=== PATIENT | female | born 1990 | race Caucasian/White ===

== ENCOUNTER 2019-01-29 14:48 | Emergency (ER) | payer OTHER ==
[~2019-01-29] VITALS: Ht 160 cm; Wt 95.5 kg
[~2019-01-29 14:48] MED LIST: FERROUS SULFAT325 MG PO; IBUPROFEN600 MG PO; NORMODYNE / TR100 MG PO; NORMODYNE / TR200 MG PO; PERCOCET 5-3251 TAB PO; PRENATABS RX TA1 TAB PO
[2019-01-29 14:55] VITALS: Ht 160 cm; Wt 95.5 kg
[2019-01-29] MEDS ORDERED: BUTALB-APAP-CA1 EACH PO (15:56)
[2019-01-29 16:26] VITALS: BP 130/82
== END 2019-01-29 16:26 | disposition home or self-care (01) ==
LOC: D.ER 14:48
DX: G43.909 Migraine, unspecified, not intractable, without status migrainosus (principal)